=== PATIENT | female | born 1970 | race Asian ===

== ENCOUNTER 2019-07-22 07:30 | Inpatient (IN) | payer OTHER ==
[2019-07-16 09:28] VITALS: BMI 22.0
--- NOTE | 2019-07-20 14:30 | HP ---
Admitting History and Physical - Primary Care Physician PCP: Abraham Corona - Admission Chief Complaint: Right breast cancer left breast LCIS History of Present Illness: 48 year old premenapausal female who developed some increasing calcifications right breast upper inner aspect of breast on mammogram 05/2019 jose 4 mm. Sterotactic core bx right breast at 1:00 and 2:00 05/2019 showed invasive ductal carcinoma which wa ER/AK + Her2-. Barbell clip was placed and a separate area at 2:00 ADH top hat clip. Breast MRI at [facility] showed other findings at 9:00 and left 11:00 and 12:00 jose 5 mm. MRI core bxs of left breast were done . She decided on right mastectomy. Left breast MRI core bx11:00 and 12:00 came back with LCIS and ALH respectively. She wishes to have bilateral mastectomies. History Source: Patient Limitations to Obtaining History: No Limitations - Past Medical History ...LMP: 06/20/19 Heme/Onc: Yes: Anemia (fe deficiency) - Smoking History Smoking history: Never smoked Have you smoked in the past 12 months: No - Alcohol/Substance Use Hx Alcohol Use: No Home Medications - Allergies Allergies/Adverse Reactions: Allergies Allergy/AdvReac Type Severity Reaction Status Date / Time No Known Allergies Allergy Verified 07/16/19 09:18 - Home Medications Home Medications: Ambulatory Orders Ferrous Sulfate [Slow Release Iron] 250 mg PO DAILY 07/16/19 Multivitamin [Multiple Vitamins] 1 each PO DAILY 07/16/19 Family Medical History Family Hx Cancer: Father (cancer type?) Physical Examination Constitutional: Yes: Well Nourished Breast(s): Yes: Other (A cup breasts bilaterally Right breast post bx changes bilaterally no palpable masses or adenopathy) Problem List - Problems (1) Breast cancer, right breast Code(s): C50.911 - MALIGNANT NEOPLASM OF UNSP SITE OF RIGHT FEMALE BREAST Qualifiers: Breast location: upper inner quadrant of breast Estrogen receptor status: positive Patient sex: female Qualified Code(s): C50.211 - Malignant neoplasm of upper-inner quadrant of right female breast; Z17.0 - Estrogen receptor positive status [ER+] (2) Lobular carcinoma in situ (LCIS) of left breast Problems reviewed: Yes Code(s): D05.02 - LOBULAR CARCINOMA IN SITU OF LEFT BREAST Assessment/Plan Bilateral total mastectomies implant and dermal matrix reconstruction Bilateral sentenel node biopsies and lymphoscintogram.
[2019-07-22] MEDS ORDERED: DEXAMETHASONE SOD PHOSPHATE 4 MG/1 ML VIAL ONE (08:44)
[2019-07-22] MEDS ORDERED: ONDANSETRON 4 MG/2 ML VIAL ONE (08:44)
[2019-07-22] MEDS ORDERED: PROPOFOL 20 ML ONE ×2 (08:45→09:11)
[2019-07-22] MEDS ORDERED: ceFAZolin SODIUM 1 GM VIAL ONE (08:45)
[2019-07-22] MEDS ORDERED: MIDAZOLAM HCL 2 MG/2 ML SINGLE DOSE VIAL ONE ×2 (08:45→09:38)
[2019-07-22] MEDS ORDERED: fentaNYL CITRATE 250 MCG/5 ML VIAL ONE (08:45)
[2019-07-22] MEDS ORDERED: SUCCINYLCHOLINE CHLORIDE 200 MG/10 ML SYRINGE ONE (09:11)
[2019-07-22] MEDS ORDERED: BUPIVACAINE HCL/PF 0.5% (5 MG/ML) 30 ML VIAL IJ ONE (09:38)
[2019-07-22] MEDS ORDERED: BUPIVACAINE LIPOSOME/PF (EXPAREL) 266 MG/20 ML VIAL ONE (09:38)
[2019-07-22] MEDS ORDERED: ISOSULFAN BLUE 10 MG/ML VIAL SQ ONE (09:43)
[2019-07-22] MEDS ORDERED: SCOPOLAMINE HYDROBROMIDE 1 PATCH PATCH.TD72 ONE (09:45)
[2019-07-22] MEDS ORDERED: ROCURONIUM BROMIDE 50 MG/5 ML SYRINGE ONE ×2 (10:08→11:04)
[2019-07-22] MEDS ORDERED: ZOLPIDEM TARTRATE 5 MG TABLET PO PRN (12:46)
[2019-07-22] MEDS ORDERED: ONDANSETRON 4 MG/2 ML VIAL IVPUSH PRN (12:46)
[2019-07-22] MEDS ORDERED: ACETAMINOPHEN 325 MG TABLET (FP) PO PRN (12:46)
[2019-07-22] MEDS ORDERED: DEXTROSE 5%-0.45% SALINE 1,000 ML IV SCH (13:00)
--- NOTE | 2019-07-22 13:56 | OP ---
Operative Note - Note: Operative Date: 07/22/19 Pre-Operative Diagnosis: breast cancer Operation: bilateral mastectomy with concurrent bilateral breast reconstruction with dermal matrix and implants Post-Operative Diagnosis: Same as Pre-op Surgeon: Adrien Fletcher Advanced Manufacturing Associate: Santy Silveira Anesthesiologist/HAND CARVER: Bola Rush Anesthesia: General Estimated Blood Loss (mls): 150 Drains & Tubes with Location: Breast drains x 2 bilaterally Operative Report Dictated: Yes
[2019-07-22] MEDS ORDERED: traMADol HCL 50 MG TABLET PO PRN (14:12)
[2019-07-22] MEDS ORDERED: oxyCODONE HCL 5 MG TABLET PO PRN ×2 (14:12)
[2019-07-22] MEDS ORDERED: LACTATED RINGERS SOLUTION 1,000 ML IV SCH (14:15)
[2019-07-22] MEDS: CEFAZOLIN 1 GM/D5W 1 GM/50 ML BAG IVPB SCH ×2 (15:35→20:35)
[2019-07-23 00:09] VITALS: TEMP 98.6
[2019-07-23] MEDS: CEFAZOLIN 1 GM/D5W 1 GM/50 ML BAG IVPB SCH ×2 (02:38→09:15)
[2019-07-23 05:41] VITALS: BP 100/64; PULSE 98
[2019-07-23 07:29] LABS: HEMATOCRIT 29.4 % (32.4-45.2); HEMOGLOBIN 9.6 GM/dl (10.7-15.3); MCH 30.4 pg (25.7-33.7); MCHC 32.8 g/dl (32.0-36.0); MEAN CELL VOLUME 92.7 fl (80-96); MEAN PLT VOLUME 7.6 fl (7.5-11.1); PLATELET COUNT 329 K/MM3 (134-434); RBC 3.17 M/mm3 (3.60-5.2); RDW 12.5 % (11.6-15.6); WHITE BLOOD COUNT 15.6 K/mm3 (4.0-10.8)
[2019-07-23] MEDS ORDERED: HEPARIN NA (PORCINE) 5,000 UNITS/ML 1ML VIAL SQ SCH (08:00)
--- NOTE | 2019-07-23 08:53 | OP ---
DATE OF OPERATION: 07/22/2019 SURGEON: Belkys Fletcher MD MEDICAL EDUCATION COORDINATOR SURGEON: BRUNO Boone PREOPERATIVE DIAGNOSIS: Bilateral acquired chest wall deformity status post bilateral mastectomy. PROCEDURE: 1. Right immediate breast reconstruction utilizing immediate insertion of silicone breast implant and acellular dermal matrix. 2. Left immediate breast reconstruction utilizing immediate insertion of silicone breast implant and acellular dermal matrix. 3. Intravenous injection of indocyanine green dye and intraoperative diagnostic evaluation of non-coronary intraoperative fluorescein vascular angiography x 2. ANESTHESIA: General. ANESTHESIOLOGIST: OPERATIVE PROCEDURE IN DETAIL: The patient was taken to the operating room. After induction of general anesthesia in the supine position, both arms were extended and padded. Venodyne boots were placed. The entire chest wall was painted with ChloraPrep solution over its entire extent, and sterile drapes were placed in the usual fashion. The markings, which had been made in the standing position preoperatively, were reoutlined with the patient's knowledge. Time-out procedure was performed. Attention was turned by Dr. Belkys Corona to the mastectomies. Bilateral inframammary incisions were made and Dr. Belkys Corona performed mastectomies. This will be dictated under separate cover. Upon completion of the mastectomies, the wounds were copiously irrigated and attention was turned to the right breast. A subpectoral dissection was begun on the right breast, superiorly from the second rib, medially to the sternal fibers, and down to the inframammary fold, elevating the pectoralis major muscle from its insertion. At this point, an 8.0 x 16.0 sheet of AlloDerm was brought into the field and sutured superiorly along the pectoralis major muscle after rehydration. This was carried along the lateral mammary fold and down the side of the breast reconstruction. At this point, a Natrelle Inspira SoftTouch style SSF 385-mL implant was chosen. The left breast tissue removed was 219 gm, and the right breast approximately 261 gm. This implant was placed and then sutured with 3-0 Vicryl suture continued along the inframammary fold, completely covering the implant itself. She had Cortiva 1-mm tailored allograft dermis placed. The exact same procedure was carried out symmetrically on the opposite breast, also placing a Natrelle Inspira SoftTouch style SSF 385-mL implant in the same subpectoral pocket. She had Cortiva 1-mm tailored allograft dermis placed. Good symmetry was seen in the sitting position. After the implants were in place, the patient was injected with 10 mL of Isocyanide green dye and the Spy imaging system was brought into the field. The skin flowed to the right and left breasts and the nipple areolar complex, and the entire skin flaps were evaluated and seen to be viable with good blood flow. Two Rigo drains were brought out through separate stab wounds laterally. The Smart Infuser pump catheter was inserted medially and into the subpectoral position. Both wounds were closed symmetrically using 3-0 PDS suture on the deep tissue, 3-0 in a deep dermal fashion, and 4-0 in a subcuticular fashion. Both wounds were dressed sterilely with Mastisol and Steri-Strips with a surgical bra and a compression strap. The patient tolerated the procedure well. She was awakened, extubated and transferred to the recovery room in satisfactory condition. The server service assistant was present during the entire portion of the operation and closure. BELKYS FLETCHER M.D. [id number]
--- NOTE | 2019-07-23 10:25 | PN ---
Progress Note, Physician Chief Complaint: s/p bilateral mastectomy with bilateral snbx and implant reconstruction POD#1 History of Present Illness: Patient was seen at the bedside and reports good pain control. She is tolerating po well and has no other complaints. - Current Medication List Current Medications: Active Medications Acetaminophen (Tylenol -) 650 mg PO Q4H PRN PRN Reason: FEVER Heparin Sodium (Porcine) (Heparin -) 5,000 unit SQ BID@0800,2000 MAXWELL Cefazolin Sodium (Ancef 1 Gm Premixed Ivpb -) 1 gm in 50 mls @ 100 mls/hr IVPB Q6H-IV MAXWELL Stop: 07/29/19 14:59 Last Admin: 07/23/19 02:38 Dose: 100 mls/hr Dextrose/Sodium Chloride (D5-1/2ns -) 1,000 mls @ 100 mls/hr IV ASDIR MAXWELL Last Admin: 07/22/19 15:36 Dose: 100 mls/hr Ondansetron HCl (Zofran Injection) 4 mg IVPUSH Q6H PRN PRN Reason: NAUSEA AND/OR VOMITING Oxycodone HCl (Roxicodone -) 5 mg PO Q3H PRN PRN Reason: PAIN LEVEL 4 - 6 Oxycodone HCl (Roxicodone -) 10 mg PO Q3H PRN PRN Reason: PAIN LEVEL 7 - 10 Tramadol HCl (Ultram -) 50 mg PO Q3H PRN PRN Reason: PAIN LEVEL 1 - 3 Zolpidem Tartrate (Ambien -) 5 mg PO HS PRN PRN Reason: Insomnia - Objective Vital Signs: Vital Signs Temperature 98.6 F 07/23/19 04:00 Pulse Rate 98 H 07/23/19 04:00 Respiratory Rate 18 07/23/19 08:00 Blood Pressure 100/64 07/23/19 04:00 O2 Sat by Pulse Oximetry (%) 100 07/23/19 08:00 Constitutional: Yes: Well Nourished, Calm Breast(s): Yes: Other (Bilateral flaps with minimal ecchymosis noted. No discharge or erythema noted bilaterally. The flaps are warm without swelling noted. JPs x 4 with serosanginous discharge noted.) Labs: CBC, BMP 07/23/19 06:57 Problem List - Problems (1) Breast cancer, right breast Code(s): C50.911 - MALIGNANT NEOPLASM OF UNSP SITE OF RIGHT FEMALE BREAST Qualifiers: Breast location: upper inner quadrant of breast Estrogen receptor status: positive Patient sex: female Qualified Code(s): C50.211 - Malignant neoplasm of upper-inner quadrant of right female breast; Z17.0 - Estrogen receptor positive status [ER+] (2) Lobular carcinoma in situ (LCIS) of left breast Code(s): D05.02 - LOBULAR CARCINOMA IN SITU OF LEFT BREAST Assessment/Plan Plan: Continue current tx regime Teach CHASTITY monitoring and recording. Possible discharge this pm
--- NOTE | 2019-07-23 13:39 | PN ---
Progress Note (short form) - Note Progress Note: PLASTIC SURGERY 48yo F s/p bilateral mastectomy with reconstruction POD1, pt seen and examined at bedside. Pt states her pain is well controlled and is ambulating and urinating well. Pt denies fever, chills, n/v. Last Vital Signs Temp Pulse Resp BP Pulse Ox 98.6 F 98 H 18 100/64 100 07/23/19 04:00 07/23/19 04:00 07/23/19 08:00 07/23/19 04:00 07/23/19 08:00 CBC, BMP 07/23/19 06:57 PE: Gen: a&O X3 REsp: breathing comfortably Breast: incisions clean with no erythema or discharge, skin pink and warm, drains in place with serosanginous drainage. Problem List - Problems (1) Breast cancer, right breast Assessment/Plan: Plan -pt is cleared from plastic surgery standpoint for discharge. -follow up with Dr. Fletcher, call the office for appt. Pt discussed with Dr. Fletcher who agrees with plan Code(s): C50.911 - MALIGNANT NEOPLASM OF UNSP SITE OF RIGHT FEMALE BREAST Qualifiers: Breast location: upper inner quadrant of breast Estrogen receptor status: positive Patient sex: female Qualified Code(s): C50.211 - Malignant neoplasm of upper-inner quadrant of right female breast; Z17.0 - Estrogen receptor positive status [ER+]
--- NOTE | 2019-07-23 14:59 | PN ---
Progress Note (short form) - Note Progress Note: S: Pt sitting in bed. No c/0. O: VAS 0/10 A/P: POD#1 s/p bilateral mastectomy and bilateral sentinel LND with reconstruction. Bilateral PECS 1& 2 blocks pre-operatively. 1. Pain meds as needed 2. No anesthetic complications
--- NOTE | 2019-07-27 14:56 | SURG ---
Surgery [place] Tier Note [place] Tier: Santy Silveira PA-C Date of Service: 07/22/19 Diagnosis: Bilateral acquired chest wall deformity s/p bilateral mastectomy Procedure: 1. Right immediate breast reconstruction utilizing immediate insertion of silicone breast implant and acellular dermal matrix. 2. Left immediate breast reconstruction utilizing immediate insertion of silicone breast implant and acellular dermal matrix 3. Intravenous infection of indocyanine green dye and intraoperative diagnostic evaluation of non-coronary intraoperative fluorescein vascular angiography x 2 I was present for the entirety of the operative procedure. For further detail, please refer to operative report.
--- NOTE | 2019-07-28 12:47 | PATH ---
Surgical Pathology Report Patient Name: NIGEL LEWIS Med. Rec. #: [id number] /Age/Gender: 1970 (Age: 48) / F Account: [id number] Location: [facility] Taken: 07/22/2019 Received: 07/22/2019 Reported: 07/28/2019 Physicians: Abraham Corona M.D. Specimen(s) Received A: LEFT AXILLARY SENTINEL NODE # 1 (FS) B: RIGHT AXILLARY SENTINEL LYMPH NODE # 1 (FS) C: RIGHT AXILLARY SENTINEL NODE # 2 (FS) D: LEFT BREAST, MASTECTOMY E: RIGHT BREAST, MASTECTOMY F: RIGHT BREAST ANTERIOR MARGIN Clinical History Right breast invasive carcinoma, left breast LCIS Intraoperative Consult Diagnosis A. Left axillary sentinel lymph node #1, frozen section: One negative lymph node (0/1). B. Right axillary sentinel lymph node #1, frozen section: One negative lymph node (0/1). C. Right axillary sentinel lymph node #2, frozen section: One negative lymph node (0/1). Antonio Taylor 07/22/19 Final Diagnosis A. LEFT AXILLARY SENTINEL LYMPH NODE #1 (3638), EXCISION (FS): ONE LYMPH NODE, NEGATIVE FOR METASTATIC CARCINOMA ON SERIAL H&E STAINED SLIDES AND CYTOKERATIN STAIN AE1/3 (0/1). Note: Immunohistochemical stain AE1/3 performed and interpreted at [facility]. Positive and negative controls (internal if applicable) show appropriate results. B. RIGHT AXILLARY SENTINEL LYMPH NODE #1 (3620), EXCISION (FS): ONE LYMPH NODE, NEGATIVE FOR METASTATIC CARCINOMA (0/1). C. RIGHT AXILLARY SENTINEL LYMPH NODE #2 (861), EXCISION (FS): ONE LYMPH NODE, NEGATIVE FOR METASTATIC CARCINOMA (0/1). D. LEFT BREAST MASTECTOMY: BREAST TISSUE WITH LOBULAR CARCINOMA IN SITU (LCIS), CLASSICAL TYPE. REMAINING BREAST TISSUE SHOWING ATYPICAL LOBULAR HYPERPLASIA (ALH), FIBROADENOMA, AND PROLIFERATIVE FIBROCYSTIC CHANGES INCLUDING SCLEROSING ADENOSIS, USUAL DUCTAL HYPERPLASIA (UDH), COLUMNAR CELL CHANGE, MICROCYSTS, DILATED DUCTS, AND STROMAL FIBROSIS. REACTIVE CHANGES AT PRIOR BIOPSY SITE IDENTIFIED. Comment: Immunohistochemical stain E-cadherin (block D12) performed and interpreted at [facility] shows lack of membranous staining in the areas of carcinoma in situ, supports a lobular phenotype. Positive and negative controls (internal if applicable) show appropriate results. E. RIGHT BREAST MASTECTOMY: INVASIVE DUCTAL CARCINOMA, WELL DIFFERENTIATED (TUBULE SCORE: 1/3; NUCLEAR GRADE: 1/3; MITOTIC SCORE: 1/3; TOTAL SCORE: 3/9, DONTE GRADING 1), MEASURING 0.2 CM IN GREATEST DIMENSION. DUCTAL CARCINOMA IN SITU (DCIS) PRESENT, INTERMEDIATE NUCLEAR GRADE, CRIBRIFORM TYPE, WITH ASSOCIATED CALCIFICATIONS. DCIS IS PRESENT IN 4 OF 27 SLIDES. LOBULAR CARCINOMA IN SITU (LCIS) PRESENT, CLASSICAL TYPE. MARGINS ARE NEGATIVE FOR CARCINOMA. INVASIVE CARCINOMA IS AT 1.6 CM FROM THE CLOSEST MARGIN (ANTERIOR SOFT TISSUE MARGIN). DCIS IS AT 1.1CM FROM THE CLOSEST MARGIN (ANTERIOR SOFT TISSUE MARGIN). REMAINING BREAST TISSUE SHOWING FIBROADENOMA, INTRADUCTAL PAPILLOMA, ATYPICAL DUCTAL HYPERPLASIA, FLAT EPITHELIAL ATYPIA, AND PROLIFERATIVE FIBROCYSTIC CHANGES INCLUDING RADIAL SCAR, SCLEROSING ADENOSIS, USUAL DUCTAL HYPERPLASIA, COLUMNAR CELL CHANGE, MICROCYSTS, DILATED DUCTS, AND STROMAL FIBROSIS. REACTIVE CHANGES AT PRIOR BIOPSY SITE IDENTIFIED. PATHOLOGIC STAGE (pTNM): pT1a pN0 ALSO SEE BREAST CANCER SUMMARY BELOW. Comment: Immunohistochemical stains (block E6) show the following results: E-cadherin shows lack of membranous staining in the areas of lobular carcinoma in situ. Smooth muscle myosin heavy chain and p40 show loss of the myoepithelial cell layer in the areas of invasive ductal carcinoma. Immunohistochemical stains performed at [place], [place] ([id number]) and interpreted at [facility] Positive and negative controls (internal if applicable) show appropriate results. F. RIGHT BREAST ANTERIOR MARGIN, EXCISION: BENIGN BREAST TISSUE. Comments Breast Invasive Carcinoma: Surgical Pathology Case Summary (Based on AJCC TNM 8 th edition) Procedure _x_ Total mastectomy (including nipple-sparing and skin-sparing mastectomy) Specimen Laterality _x_ Right Tumor Size _x_ Greatest dimension of largest invasive focus >1 mm (millimeters): 2 mm Histologic Type _x_ Invasive carcinoma of no special type (ductal, not otherwise specified) Histologic Grade (Custer Histologic Score) Glandular (Acinar)/Tubular Differentiation _x_ Score 1 (>75% of tumor area forming glandular/tubular structures) Nuclear Pleomorphism _x_ Score 1 Mitotic Rate _x_ Score 1 Overall Grade _x_ Grade 1 (scores of 3, 4, or 5) Tumor Focality _x_ Single focus of invasive carcinoma Ductal Carcinoma In Situ (DCIS) _x_ DCIS is present in specimen _x_ Positive for extensive intraductal component (EIC) Margins Invasive Carcinoma Margins _x_ Uninvolved by invasive carcinoma Distance from closest margin (millimeters): > 16 mm Closest margin: Invasive carcinoma is at 16 mm from anterior soft tissue margin in the mastectomy (specimen E). Additional anterior margin (specimen F) is negative for carcinoma. DCIS Margins _x__ Uninvolved by DCIS Distance from closest margin (millimeters): > 11 mm Closest margin: DCIS is at 11 mm from anterior soft tissue margin in the mastectomy (specimen E). Additional anterior margin (specimen F) is negative for carcinoma. Regional Lymph Nodes _x_ Uninvolved by tumor cells Number of Lymph Nodes Examined: 3 Number of [place] Nodes Examined: 3 Treatment Effect _x_ No known presurgical therapy Lymphovascular Invasion _x_ Not identified Pathologic Stage Classification (pTNM, AJCC 8th Edition) Primary Tumor (Invasive Carcinoma) (pT) _x_ pT1a: Tumor >1 mm but =5 mm in greatest dimension Category (pN) _x_ pN0: No regional lymph node metastasis identified or ITCs only Biomarker Studies Results of ER, NH, Her2 and Ki67 studies will be reported separately in an addendum. Electronically Signed Eric Vargas M.D. Addendum Reported: 07/29/2019 Addendum Diagnosis Biomarker Studies Results of ER, NH, Her2 (IHC) & Ki-67 studies performed on this specimen (block E6) at [place], [place] ([id number]) interpreted at [facility] are as follows: ER (clone [id number] mouse monoclonal antibody by [employer]): 95% nuclear staining with strong and moderate intensity (Positive). NH (clone16 mouse monoclonal antibody by [employer]): 100% nuclear staining with strong intensity (Positive). Her2 IHC (EP3 from [employer], formerly known as [id number], using Sandoval Polymer Refine detection kit): Negative (0) Ki-67: ~5% (low proliferative index) Positive and negative controls (internal if applicable) show appropriate results. Formalin fixation and cold ischemic times are within current ASCO/CAP recommendations for ER, NH and Her2 testing. Eric Vargas M.D. Gross Description A. Received fresh for frozen section evaluation, labeled "left axillary sentinel lymph node #1" is a 1.8 x 1.4 x 0.4 cm lymph node with attached fatty tissue. The lymph node is bisected and frozen section is performed on the lymph node. The frozen section residue is entirely submitted in one cassette. B. Received fresh for frozen section evaluation, labeled "right axillary sentinel lymph node #1" is a 1.4 x 0.6 x 0.3 cm lymph node with attached fatty tissue. Frozen section is performed on the lymph node. The frozen section residue is entirely submitted in one cassette. C. Received fresh for frozen section evaluation, labeled "right axillary sentinel lymph node #2" is a 0.5 x 0.4 x 0.2 cm lymph node with attached fatty tissue. Frozen section is performed on the lymph node. The frozen section residue is entirely submitted in one cassette. D. Received in formalin, labeled "left breast mastectomy," is a 204 gram, 11.5 x 11.5 x 4.5 cm. left mastectomy specimen with a short suture marking the superior aspect and a long suture marking the lateral aspect of the specimen, per the surgeon. The anterior surface displays a 4.3 x 1.8 cm brennan, elliptical portion of skin with a 1.2 cm in diameter nipple. The deep margin is inked black and the anterior soft tissue margin is inked blue. The specimen is serially sectioned from medial to lateral. Sectioning reveals a hemorrhagic biopsy cavity in the upper outer quadrant (UOQ) as well as a second hemorrhagic biopsy cavity in the upper inner quadrant (UIQ). The UOQ biopsy cavity displays a sims metallic biopsy clip. Both hemorrhagic biopsy cavities are surrounded by white fibrous tissue. No definitive mass is identified. Miner Assistant sections are submitted in 26 cassettes as follows: 1-serially sectioned nipple; 2-subareolar shave; 3-6-UOQ biopsy cavity with surrounding tissue; 2-1-beslxqmmyw UOQ tissue; 10-14-UIQ biopsy cavity; 14-75-fkqowkfqni UIQ tissue; 18-19-lower inner quadrant; 20-24-lower outer quadrant; 25-skin and additional anterior soft tissue margin; 26-deep margin. E. Received in formalin, labeled "right breast mastectomy," is a 271 gram, 14.0 x 13.5 x 3.1 cm. right mastectomy specimen with a short suture marking the superior aspect and a long suture marking the lateral aspect of the specimen, per the surgeon. The anterior surface displays a 4.0 x 2.8 cm brennan, elliptical portion of skin with a 1.2 cm in diameter nipple. The deep margin is inked black and the anterior soft tissue margin is inked blue. The specimen is serially sectioned from lateral to medial. Sectioning reveals a 2.0 x 1.7 x 1.5 cm ill-defined focus of firm fibrous tissue with foci of hemorrhage, likely consistent with a previous biopsy site in the upper inner quadrant (UIQ). No definitive residual mass is identified. Sectioning of the remaining breast parenchyma displays abundant dense, white, firm fibrous tissue. Miner Assistant sections are submitted in 21 cassettes as follows: 1-serially sectioned nipple; 2-subareolar shave; 3-6-UIQ probable previous biopsy site; 7-57-bmqtynntnb UIQ tissue; 11-12-lower inner quadrant; 13-14-upper outer quadrant; 15-17-lower outer quadrant; 12-89-iyjjtgkratec tissue; 20-skin and anterior soft tissue margin; 21-deep margin. 22-24- Additional sections from prior biopsy site in UIQ. A clip is identified in block 23. 25-27: additional sections from nodular area. F. Received in formalin labeled "right breast anterior margin," is a 2.7 x 2.0 x 0.5 cm portion of fibroadipose tissue with a suture marking the biopsy cavity side, per the surgeon. The new margin is inked blue and the specimen is serially sectioned. The specimen is entirely submitted in 3 cassettes. Time to formalin fixation: 50 minutes Total formalin fixation time: Approximately 29 hours. AE/07/22/2019 ebram/07/22/2019
== END 2019-07-23 12:52 | disposition home or self-care (01) | DRG 583 ==
LOC: EDSTATUS 07:30 → FM/S 08:13 → EDSTATUS 09:00 → FM/S 15:11
PROVIDERS: ADMIT Surgery Surgical Oncology; ATTEND Surgery Surgical Oncology
PROC: 0HTV0ZZ Resection of Bilateral Breast, Open Approach (ICD-10-PCS; principal; 2019-07-22 10:35)
PROC: 0HUV0JZ Supplement Bilateral Breast with Synthetic Substitute, Open Approach (ICD-10-PCS; 2019-07-22 10:35)
PROC: 4A1GXSH Monitoring of Skin and Breast Vascular Perfusion using Indocyanine Green Dye, External Approach (ICD-10-PCS; 2019-07-22 10:35)
DX: C50.211 Malignant neoplasm of upper-inner quadrant of right female breast (principal); Z17.0 Estrogen receptor positive status [ER+]; M95.4 Acquired deformity of chest and rib
CPT/HCPCS: 36415; 76098-TC-FY; 78195-TC; 84703; 85027; 88307-TC; 88331-TC; 94760; A9541; J1644